=== PATIENT | male | born 1965 | race Caucasian/White ===

== ENCOUNTER 2019-05-20 14:31 | Outpatient (CLI) | payer BC, OTHER ==
[2019-05-20] MEDS ORDERED: TRIA1TAB5 PO (14:57)
[2019-05-20] MEDS ORDERED: LISI-170 PO (14:57)
[2019-05-20] MEDS ORDERED: ALBU90AE INH (14:57)
[2019-05-20] MEDS ORDERED: BUDE10.22 INH (14:57)
[2019-05-20] MEDS ORDERED: ATOR80TA PO (14:57)
[2019-05-20] MEDS ORDERED: NAPR220C2 PO (15:11)
[2019-05-20 15:21] LABS: ALANINE AMINOTRANSFERASE 49 U/L (12-78); ALBUMIN 4.2 g/dL (3.4-5.0); ANION GAP 7 mmol/L (5-15); CALCIUM 8.9 mg/dL (8.5-10.1); CHLORIDE 102 mmol/L (98-107); CREATININE 1.21 mg/dL (0.7-1.3)
[2019-05-20 15:23] LABS: ALKALINE PHOSPHATASE 49 U/L (45-117); BILIRUBIN,TOTAL 0.7 mg/dL (0.2-1.0); TOTAL PROTEIN 7.6 g/dL (6.4-8.2)
== END 2019-05-20 23:59 | disposition home or self-care (01) ==
LOC: STAR 14:31
PROVIDERS: ATTEND Surgery
DX: Z01.818 Encounter for other preprocedural examination (principal); K40.90 Unilateral inguinal hernia, without obstruction or gangrene, not specified as recurrent
CPT/HCPCS: 36415; 80053

== ENCOUNTER 2019-05-26 07:30 | Day surgery (SDC) | payer BC, OTHER ==
[~2019-05-26] VITALS: Ht 182.9 cm; Wt 118.0 kg
[~2019-05-26 07:30] MED LIST: ALBU90AE INH; ATOR80TA PO; BUDE10.22 INH; BUPIVACAINE/PF 0.5% ONE; EPINEPHRINE 1 MG/ML, 1ML ONE; LISI-170 PO; NAPR220C2 PO; TRIA1TAB5 PO
[2019-05-26] MEDS ORDERED: LACTATED RINGERS 1,000 ML IV SCH (07:42)
[2019-05-26] MEDS ORDERED: GABAPENTIN 300 MG CAPSULE PO ONE (08:00)
[2019-05-26] MEDS ORDERED: ACETAMINOPHEN 500 MG TABLET PO ONE (08:00)
[2019-05-26] MEDS ORDERED: FENTANYL PF 250 MCG/5ML ONE ×2 (09:41→10:38)
[2019-05-26] MEDS ORDERED: MIDAZOLAM 1 MG/ML, 2ML ONE (09:42)
[2019-05-26] MEDS ORDERED: HYDROmorphone 2 MG/ML, 1ML IVPush PRN (10:00)
[2019-05-26] MEDS ORDERED: ALBUTEROL SULFATE 2.5 MG/3 ML NPPB PRN (10:00)
[2019-05-26] MEDS ORDERED: OXYcodone 5 MG/5 ML ORAL.SOL UDC PO PRN (10:00)
[2019-05-26] MEDS ORDERED: ONDANSETRON 2MG/ML, 2ML IV PRN (10:00)
[2019-05-26] MEDS ORDERED: MEPERIDINE/PF 25MG/ML,1ML IVPush PRN (10:00)
[2019-05-26] MEDS ORDERED: FENTANYL PF 100 MCG/2ML IV PRN (10:00)
[2019-05-26] MEDS ORDERED: LABETALOL 5MG/ML, 20ML IV PRN (10:00)
[2019-05-26] MEDS ORDERED: hydrALAzine 20 MG/ML, 1ML IV PRN (10:00)
[2019-05-26] MEDS ORDERED: MORPHINE SULFATE 4 MG/ML, 1ML IVPush PRN (10:00)
[2019-05-26] MEDS ORDERED: ROCURONIUM 10MG/ML,5ML ONE ×2 (10:24)
[2019-05-26] MEDS ORDERED: NEOSTIGMINE 1 MG/ML, 10ML ONE (10:24)
[2019-05-26] MEDS ORDERED: PROPOFOL 10 MG/ML, 20ML ONE (10:24)
[2019-05-26] MEDS ORDERED: GLYCOPYRROLATE 0.2MG/1ML, 5ML ONE (10:24)
[2019-05-26] MEDS ORDERED: CEFAZOLIN 1,000 MG ONE (10:24)
[2019-05-26] MEDS ORDERED: METHOCARBAMOL 1,000 MG in DEXTROSE 5% 100 ML IV ONE (11:30)
[2019-05-26] MEDS ORDERED: MEPERIDINE/PF 25MG/ML,1ML ONE (12:02)
[2019-05-26] MEDS ORDERED: OXYcodone 5 MG/5 ML ORAL.SOL UDC ONE (12:02)
== END 2019-05-26 14:45 | disposition home or self-care (01) ==
LOC: OUT 07:30
PROVIDERS: ATTEND Surgery
DX: K40.90 Unilateral inguinal hernia, without obstruction or gangrene, not specified as recurrent (principal); D17.6 Benign lipomatous neoplasm of spermatic cord; I10 Essential (primary) hypertension; E78.5 Hyperlipidemia, unspecified; J45.909 Unspecified asthma, uncomplicated; Z79.899 Other long term (current) drug therapy; Z88.5 Allergy status to narcotic agent
CPT/HCPCS: 49650; C1781; J0171; J0690; J2175; J2250; J2704; J2710; J2800; J3010; J7120; S2900